=== PATIENT | female | born 1940 | race Caucasian/White ===

== ENCOUNTER 2016-10-18 13:48 | Emergency (ER) | payer MEDICARE ==
[2016-10-18 14:04] VITALS: BP 133/81
--- NOTE | 2016-10-18 14:06 | UC ---
Throat Pain/Nasal Christian HPI - HPI Summary HPI Summary: complaint of nasal congestion and cough that started 4 weeks ago productive cough with thick soututm for the last 3 days has sinus pressure and the left side of her face hurts intermittent headaches intermittent sore throat denies fever and chills vicks vapor rub with some relief pneumonia 4 months ago RLL - History of Current Complaint Stated Complaint: COLD/CONGESTION Time Seen by Provider: 10/18/16 13:54 Hx Obtained From: Patient Hx Last Menstrual Period: POST MENOPAUSE - Allergies/Home Medications Allergies/Adverse Reactions: Allergies Allergy/AdvReac Type Severity Reaction Status Date / Time Latex Allergy Intermediate hives, Verified 07/14/16 19:17 swelling Penicillins Allergy Intermediate hives,swell Verified 07/14/16 19:17 ing Iodinated Diagnostic Agents Allergy Shortness Verified 07/15/16 07:20 of Breath Ciprofloxacin [From Cipro] AdvReac Severe nasuea,vomi Verified 07/15/16 07:[address] IV contrast Allergy Mild Shortness Uncoded 07/14/16 19:17 of Breath Home Medications: Home Medications Atorvastatin* [Lipitor 40 MG*] 10 mg PO 1700 10/18/16 [History Confirmed ] PMH/Surg Hx/FS Hx/Imm Hx Previously Healthy: Yes Endocrine History Of: Reports: Thyroid Disease - HYPOTHYROID Denies: Diabetes Cardiovascular History Of: Reports: Hypertension Denies: Cardiac Disorders, Pacemaker/ICD Respiratory History Of: Reports: Pneumonia Denies: COPD, Asthma GI/ History Of: Denies: Ulcer, Renal Disease Neurological History Of: Reports: TIA, Migraine Psychological History Of: Reports: Anxiety Cancer History Of: Reports: Breast Cancer - LEFT 2005 - Surgical History Surgical History: Yes Surgery Procedure, Year, and Place: LEFT BREAST LUMPECTOMY-2005, HYSTERECTOMY/ OOPHARECTOMY AND BLADDER AND RECTAL LIFT FEBRUARY 2013 - Family History Known Family History: Positive: Hypertension, Other - TIA, CVA Negative: Cardiac Disease, Diabetes - Social History Occupation: Employed Full-time Lives: With Family Alcohol Use: Rare Substance Use Type: None Smoking Status (MU): Never Smoked Tobacco Have You Smoked in the Last Year: No Review of Systems Constitutional: Fatigue Skin: Negative Eyes: Negative ENT: Sore Throat, Nasal Discharge Respiratory: Cough Cardiovascular: Negative Gastrointestinal: Negative Genitourinary: Negative Motor: Negative Neurovascular: Negative Musculoskeletal: Negative Neurological: Negative Psychological: Negative All Other Systems Reviewed And Are Negative: Yes Physical Exam Triage Information Reviewed: Yes Appearance: No Pain Distress, Well-Nourished Vital Signs Reviewed: Yes Eyes: Positive: Conjunctiva Clear ENT: Positive: Pharyngeal erythema, Nasal congestion, Nasal drainage - maxillary sinus tenderness L>R, TM bulging. Negative: TM red Neck: Positive: No Lymphadenopathy Respiratory: Positive: Lungs clear, Normal breath sounds, No respiratory distress Cardiovascular: Positive: RRR, No Murmur, Pulses Normal Abdomen Description: Positive: Nontender, Soft Bowel Sounds: Positive: Present Musculoskeletal: Positive: No Edema Neurological: Positive: Alert Psychological Exam: Normal Skin Exam: Normal Throat Pain/Nasal Course/Dx - Course Course Of Treatment: exam completed. will treat for sinusitis with bactrim d/t allergy to cipro, PCN,. followup with PCP - Differential Dx/Diagnosis Differential Diagnosis/HQI/PQRI: Pharyngitis, Sinusitis, URI, Other - pneumonia Provider Diagnoses: sinusitis Discharge - Discharge Plan Condition: Stable Disposition: HOME Prescriptions: Sulfamethox/Trimethoprim DS* [Bactrim DS 800/160 TAB*] 1 tab PO BID #20 tab Patient Education Materials: Sinusitis (ED) Referrals: Farhad Loera NP [Primary Care Provider] - Additional Instructions: Please take antibiotic as directed. Increase fluids and rest Take acetaminophen or ibuprofen for fever or pain Please review your discharge instructions. If your symptoms do not improve please call your primary care provider or return to urgent care. SINUSITIS What is Sinusitis? Sinusitis is inflammation or infection of the lining of the sinuses behind the bones in your cheeks or forehead. Sinusitis may occur following a common cold, flu, or other infection; allergies; a tooth infection that spreads to the sinuses; swimming in contaminated water; pressure changes in airplanes at high altitudes; violent sneezing or nose blowing or smoking or breathing other peoples smoke. Symptoms Might Include: Nasal Congestion Sneezing Watery eyes, eye irritation, or eye itching Headaches Pressure in the cheeks Wheezing Trouble smelling Sore throat and coughing may occur Treatment Recommendations: Take medicines as prescribed until completely gone. Drink plenty of fluids. Use saline nose spray to thin the mucous and help the sinuses drain. Use a vaporizer or humidifier. Apply warm compresses to the face or forehead several times a day for 10 to 20 minutes. Call Your Doctor or Return Here IF: Your pain increases during treatment. You develop a high temperature. You develop unusual swelling around the eyes. You have difficulty with your vision. You develop a severe headache, earache, or toothache. You develop increased fever or fever that does not respond to medication such as Tylenol?. You have difficulty breathing or catching your breath. You begin to have any other new symptoms that worry you.
== END 2016-10-18 14:32 | disposition home or self-care (01) ==
LOC: UCEAST 13:48
DX: J32.9 Chronic sinusitis, unspecified (principal); E03.9 Hypothyroidism, unspecified; Z88.0 Allergy status to penicillin
CPT/HCPCS: 99212; G0463

== ENCOUNTER 2016-11-26 08:03 | Emergency (ER) | payer MEDICARE ==
[2016-11-26 09:57] VITALS: BP 195/93
--- NOTE | 2016-12-04 15:39 | UC ---
Kristi Murillo Claudia, scribed for Ashley Long MD on 11/26/16 at 0918 . General HPI - HPI Summary HPI Summary: 76 year old female presents to the [facility] with multi-sx for the past few weeks. Pt states gradual onset over the past few weeks worsening over the last day. Pt notes that her cough has subsided a bit however she has had a bad sore throat which has worsened over the last day. Pt also admits to some sinus pressure and congestion with some discharge. She also notes that she has been having bilateral tenriism pain which she has been evaluated for in July 2016 and they notes it was ocular migraines. She notes that she was Dx with a sinus infection a month ago and was given ABx and there seems to be no change in her sinus pressure/pain and nasal discharge. - History of Current Complaint Chief Complaint: UCRespiratory Stated Complaint: SINUS CONGESTION Time Seen by Provider: 11/26/16 08:49 Hx Obtained From: Patient Onset/Duration: Gradual Onset, Lasting Weeks, Still Present, Worse Since - yesterday - Allergy/Home Medications Allergies/Adverse Reactions: Allergies Allergy/AdvReac Type Severity Reaction Status Date / Time Latex Allergy Intermediate hives, Verified 11/26/16 08:24 swelling Penicillins Allergy Intermediate hives,swell Verified 11/26/16 08:24 ing Iodinated Diagnostic Agents Allergy Shortness Verified 11/26/16 08:24 of Breath Ciprofloxacin [From Cipro] AdvReac Severe nasuea,vomi Verified 11/26/16 08:[address] IV contrast Allergy Mild Shortness Uncoded 11/26/16 08:24 of Breath PMH/Surg Hx/FS Hx/Imm Hx Previously Healthy: Yes Endocrine History Of: Reports: Thyroid Disease - HYPOTHYROID Denies: Diabetes Cardiovascular History Of: Reports: Hypertension Denies: Cardiac Disorders, Pacemaker/ICD Respiratory History Of: Reports: Pneumonia Denies: COPD, Asthma GI/ History Of: Denies: Ulcer, Renal Disease Neurological History Of: Reports: TIA, Migraine Psychological History Of: Reports: Anxiety Cancer History Of: Reports: Breast Cancer - LEFT 2005 - Surgical History Surgical History: Yes Surgery Procedure, Year, and Place: LEFT BREAST LUMPECTOMY-2005, HYSTERECTOMY/ OOPHARECTOMY AND BLADDER AND RECTAL LIFT FEBRUARY 2013 - Family History Known Family History: Positive: Hypertension, Other - TIA, CVA Negative: Cardiac Disease, Diabetes - Social History Occupation: Employed Full-time Alcohol Use: Rare Substance Use Type: None Smoking Status (MU): Never Smoked Tobacco Have You Smoked in the Last Year: No - Immunization History Most Recent Influenza Vaccination: Never Most Recent Pneumonia Vaccination: Never Review of Systems Constitutional: Negative Skin: Negative Eyes: Negative ENT: Sore Throat Respiratory: Cough Cardiovascular: Negative Gastrointestinal: Negative Genitourinary: Negative Motor: Negative Neurovascular: Negative Musculoskeletal: Negative Neurological: Negative Psychological: Negative All Other Systems Reviewed And Are Negative: Yes Physical Exam Triage Information Reviewed: Yes Appearance: Well-Nourished Vital Signs: Initial Vital Signs Temp 97.3 F 11/26/16 08:26 Pulse 81 11/26/16 08:26 Resp 18 11/26/16 08:26 BP 168/99 11/26/16 08:26 Pulse Ox 99 11/26/16 08:26 Eye Exam: Normal ENT Exam: Normal ENT: Positive: Pharyngeal erythema - posterior pharynx, Other: - + sinus type congestion Dental Exam: Normal Neck exam: Normal Neck: Positive: 1 Respiratory Exam: Normal Respiratory: Positive: Chest non-tender, Lungs clear, Normal breath sounds Cardiovascular Exam: Normal Cardiovascular: Positive: RRR, No Murmur, Pulses Normal, Brisk Capillary Refill Abdominal Exam: Normal Abdomen Description: Positive: Nontender, No Organomegaly, Soft Musculoskeletal Exam: Normal Musculoskeletal: Positive: Strength Intact Neurological Exam: Normal Psychological Exam: Normal Skin Exam: Normal Course/Dx - Course Course Of Treatment: No new problems in ccc, considered differential diagnoses. C/o several pain, and recurrent sinus issues. Neg [place]'s at today's exanimation. She is concerned that she has had bad headaches and episodic pain. Wants to be tested for lyme. I reviewed recent hospital admission and reviewed imaging with pt (she wanted to know what imaging had been done). She will f/u w pcpSenait, early this week. Will seek medical attention for worse or new problems in the meantime. Questions answered to the best of my ability. Seems pleased with care and tx plan. - Differential Dx - Multi-Symptom Provider Diagnoses: Chronic intermittent headache. Sinusitis Discharge - Discharge Plan Condition: Stable Disposition: HOME Prescriptions: DOXYcycline CAP(*) [DOXYcycline 100MG CAP(*)] 100 mg PO BID #20 cap Patient Education Materials: Doxycycline (By mouth), Sinusitis (ED) Referrals: Farhad Loera NP [Primary Care Provider] - (Please follow-up with your Primary Care Provider. ) Additional Instructions: Follow up with your primary care physician / [facility] in 1-2 weeks for recheck. Seek medical attention sooner for worse or new problems in the meantime. Please ask your doctor about your facial / tenriism pain. The documentation as recorded by the Kristi lewis Claudia accurately reflects the service I personally performed and the decisions made by me, Ashley Long MD.
== END 2016-11-26 09:57 | disposition home or self-care (01) ==
LOC: UCEAST 08:03
DX: R51 Headache (principal); J32.9 Chronic sinusitis, unspecified; Z88.1 Allergy status to other antibiotic agents; Z88.0 Allergy status to penicillin; Z91.041 Radiographic dye allergy status
CPT/HCPCS: 99212; G0463

== ENCOUNTER 2017-04-22 12:41 | Emergency (ER) | payer MEDICARE ==
[2017-04-22 12:54] VITALS: BP 133/82
--- NOTE | 2017-04-22 13:07 | UC ---
Upper Extremity HPI - HPI Summary HPI Summary: Patient was lifting weights and hurt her left wrist 4 days ago, there is still alot of pain ans swelling and her brace makes it worse. - History of Current Complaint Chief Complaint: UCUpperExtremity Stated Complaint: WRIST INJURY Hx Obtained From: Patient Hx Last Menstrual Period: POST MENOPAUSE ?: No Onset/Duration: Sudden Onset, Lasting Days - 4 Severity Initially: Mild Severity Currently: Mild Location Of Pain: Is Discrete @ - left wrsit Character: Sharp, Aching Aggravating Factor(s): Movement Alleviating Factor(s): Rest Associated Signs And Symptoms: Positive: Swelling, Weakness - Allergies/Home Medications Allergies/Adverse Reactions: Allergies Allergy/AdvReac Type Severity Reaction Status Date / Time Latex Allergy Intermediate hives, Verified 04/22/17 12:48 swelling Penicillins Allergy Intermediate hives,swell Verified 04/22/17 12:48 ing Iodinated Diagnostic Agents Allergy Shortness Verified 04/22/17 12:48 of Breath Ciprofloxacin [From Cipro] AdvReac Severe nasuea,vomi Verified 04/22/17 12:[address] IV contrast Allergy Mild Shortness Uncoded 04/22/17 12:48 of Breath PMH/Surg Hx/FS Hx/Imm Hx Previously Healthy: Yes - Surgical History Surgical History: Yes Surgery Procedure, Year, and Place: LEFT BREAST LUMPECTOMY-2005, HYSTERECTOMY/ OOPHARECTOMY AND BLADDER AND RECTAL LIFT FEBRUARY 2013 - Family History Known Family History: Positive: Hypertension, Other - TIA, CVA Negative: Cardiac Disease, Diabetes - Social History Alcohol Use: Rare Substance Use Type: None Smoking Status (MU): Never Smoked Tobacco Have You Smoked in the Last Year: No - Immunization History Most Recent Influenza Vaccination: Never Most Recent Pneumonia Vaccination: Never Review of Systems Constitutional: Negative Skin: Negative Eyes: Negative ENT: Negative Respiratory: Negative Cardiovascular: Negative Gastrointestinal: Negative Genitourinary: Negative Motor: Negative Musculoskeletal: Arthralgia, Decreased ROM, Edema, Myalgia Neurological: Negative Psychological: Negative All Other Systems Reviewed And Are Negative: Yes Physical Exam Triage Information Reviewed: Yes Appearance: Well-Appearing, Well-Nourished, Pain Distress Vital Signs: Initial Vital Signs Temp 98.0 F 04/22/17 12:50 Pulse 64 04/22/17 12:50 Resp 16 04/22/17 12:50 BP 133/82 04/22/17 12:50 Pulse Ox 99 04/22/17 12:50 Vital Signs Reviewed: Yes Eye Exam: Normal ENT Exam: Normal Dental Exam: Normal Neck exam: Normal Respiratory Exam: Normal Cardiovascular Exam: Normal Abdominal Exam: Normal Bowel Sounds: Positive: Present Musculoskeletal Exam: Normal Musculoskeletal: Positive: Strength Limited @ - in left wrist, ROM Limited @ - in extenstion and flexion, pronation and supination Neurological Exam: Normal Psychological Exam: Normal Skin Exam: Normal Upper Extremity Course/Dx - Course Course Of Treatment: hx obtained, exam performed ,meds reviewed, xray obtained no acute fracture, splint applied and education given on treatment, referral to hand specialist given - Differential Dx/Diagnosis Differential Diagnosis/HQI/PQRI: Fracture (Closed), Strain, Sprain Provider Diagnoses: right wrist sprain Discharge - Discharge Plan Condition: Stable Disposition: HOME Patient Education Materials: Wrist Sprain (ED) Referrals: Farhad Loera NP [Primary Care Provider] - Additional Instructions: 1. wear the splint for support, 2. elevate at rest. 3. Follow up with the orthopedic listed if your pain and swelling are not improving.
--- NOTE | 2017-04-22 13:36 | RAD ---
HISTORY: Left wrist swelling and pain COMPARISONS: None VIEWS: 3, Frontal, lateral, and oblique views of the left wrist FINDINGS: BONE DENSITY: There is diffuse osteopenia. BONES: There is no displaced fracture. JOINTS: There is osteoarthritis of the first CMC and scaphoid trapezium articulations. ALIGNMENT: There is no dislocation. SOFT TISSUES: Unremarkable. OTHER FINDINGS: None. IMPRESSION: 1. OSTEOPENIA. 2. OSTEOARTHRITIS. 3. NO ACUTE OSSEOUS INJURY. THE DEGREE OF OSTEOPENIA MAY MAKE A NONDISPLACED FRACTURE RADIOGRAPHICALLY OCCULT. IF SYMPTOMS PERSIST, RECOMMEND REPEAT IMAGING.
== END 2017-04-22 14:13 | disposition home or self-care (01) ==
LOC: UCEAST 12:41
DX: S63.501A Unspecified sprain of right wrist, initial encounter (principal); X50.9XXA Other and unspecified overexertion or strenuous movements or postures, initial encounter; Y93.B3 Activity, free weights; Y92.9 Unspecified place or not applicable; Y99.9 Unspecified external cause status
CPT/HCPCS: 99212; G0463

== ENCOUNTER 2019-03-06 13:18 | Emergency (ER) | payer MEDICARE ==
--- NOTE | 2019-03-06 15:54 | UC ---
Respiratory Complaint HPI - HPI Summary HPI Summary: 78 yo female presents with sinus pain/pressure/congestion, post nasal drip, and intermittently productive cough for the last 3 weeks. She has been taking OTC cold medicine with no relief. Denies fever, chills, sore throat, SOB. She does not smoke. - History of Current Complaint Chief Complaint: UCRespiratory Stated Complaint: RESP ISSUE Time Seen by Provider: 03/06/19 15:54 Hx Obtained From: Patient Hx Last Menstrual Period: POST MENOPAUSE Onset/Duration: Gradual Onset Severity Initially: Mild Severity Currently: Mild Pain Intensity: 2 Pain Scale Used: 0-10 Numeric - Allergies/Home Medications Allergies/Adverse Reactions: Allergies Allergy/AdvReac Type Severity Reaction Status Date / Time MS Latex [Latex] Allergy Intermediate hives, Verified 04/22/17 12:48 swelling MS Penicillins [Penicillins] Allergy Intermediate hives,swell Verified 04/22/17 12:48 ing ciprofloxacin [From Cipro] Allergy Shortness Verified 03/06/19 15:40 of Breath latex Allergy Hives Verified 03/06/19 15:40 MS Iodinated Diagnostic Allergy Shortness Verified 04/22/17 12:48 Agents of Breath [Iodinated Diagnostic Agents] Penicillins Allergy Hives Verified 03/06/19 15:40 MS Ciprofloxacin [From Cipro] AdvReac Severe nasuea,vomi Verified 04/22/17 12:[address] IV contrast Allergy Mild Shortness Uncoded 04/22/17 12:48 of Breath Home Medications: Home Medications Aspirin/Acetaminophen/Caffeine [Excedrin Extra Strength Caplet] 2 each PO Q12HR PRN 03/06/19 [History Confirmed 03/06/19] PMH/Surg Hx/FS Hx/Imm Hx Endocrine History: Hypothyroidism, Dyslipidemia Cardiovascular History: Hypertension - Surgical History Surgical History: Yes Surgery Procedure, Year, and Place: LEFT BREAST LUMPECTOMY-2005, HYSTERECTOMY/ OOPHERECTOMY AND BLADDER AND RECTAL LIFT FEBRUARY 2013 - Family History Known Family History: Positive: Hypertension, Other - TIA, CVA Negative: Cardiac Disease, Diabetes - Social History Occupation: Retired Lives: With Family Alcohol Use: Rare Substance Use Type: None Smoking Status (MU): Never Smoked Tobacco Have You Smoked in the Last Year: No - Immunization History Most Recent Influenza Vaccination: Never Most Recent Pneumonia Vaccination: Never Review of Systems All Other Systems Reviewed And Are Negative: Yes Constitutional: Positive: Negative Skin: Positive: Negative Eyes: Positive: Negative ENT: Positive: Nasal Discharge, Sinus Congestion, Sinus Pain/Tenderness Respiratory: Positive: Cough Cardiovascular: Positive: Negative Gastrointestinal: Positive: Negative Neurovascular: Positive: Negative Neurological: Positive: Negative Psychological: Positive: Negative Physical Exam - Summary Physical Exam Summary: GENERAL: NAD. WDWN. No pain distress. SKIN: No rashes, sores, lesions, or open wounds. HEENT: Head: AT/NC Eyes: EOM intact. Conjunctiva clear without inflammation or discharge. Ears: Hearing grossly normal. TMs intact, no bulging, erythema, or edema. Nose: Nasal mucosa mildly swollen and erythematous with no discharge. TTP maxillary > frontal sinus. Positive post nasal drip Throat: Posterior oropharynx without exudates, erythema, or tonsillar enlargement. Uvula midline. NECK: Supple. Nontender. No lymphadenopathy. CHEST: CTAB. No r/r/w. No accessory muscle use. Breathing comfortably and in no distress. CV: RRR. Without m/r/g. Pulses intact. NEURO: Alert. PSYCH: Age appropriate behavior. Triage Information Reviewed: Yes Vital Signs: Initial Vital Signs Temp 97.1 F 03/06/19 15:35 Pulse 64 03/06/19 15:35 Resp 18 03/06/19 15:35 Pulse Ox 100 03/06/19 15:35 Vital Signs Reviewed: Yes Respiratory Course/Dx - Course Course Of Treatment: Sinusitis - Differential Dx/Diagnosis Provider Diagnosis: Sinusitis Discharge - Sign-Out/Discharge Documenting (check all that apply): Patient Departure All imaging exams completed and their final reports reviewed: No Studies - Discharge Plan Condition: Stable Disposition: HOME Prescriptions: Azithromycin TAB* [Zithromax TAB (Z-ITZ) 250 mg #6 tabs] 2 tab PO .TODAY, THEN 1 DAILY #1 itz Patient Education Materials: Sinusitis (ED) Referrals: Farhad Loera NP [Primary Care Provider] - Additional Instructions: If you develop a fever, shortness of breath, chest pain, new or worsening symptoms - please call your PCP or go to the ED immediately. - Billing Disposition and Condition Condition: STABLE Disposition: Home
== END 2019-03-06 16:04 | disposition home or self-care (01) ==
LOC: UCEAST 13:18
DX: J32.9 Chronic sinusitis, unspecified (principal); I10 Essential (primary) hypertension; Z79.82 Long term (current) use of aspirin; Z91.041 Radiographic dye allergy status; Z88.0 Allergy status to penicillin; Z88.1 Allergy status to other antibiotic agents; Z91.040 Latex allergy status
CPT/HCPCS: 99212; G0463